=== PATIENT | female | born 1950 | race Caucasian/White ===

== ENCOUNTER 2019-02-25 16:55 | Emergency (ER) | payer OTHER, MEDICARE ==
[2019-02-25 17:06] VITALS: TEMP 98.4; BMI 46.0
--- NOTE | 2019-02-25 17:16 | PDOC ---
History of Present Illness <Carly Kuo Shielacapri - Last Filed: 02/25/19 19:03> - History of Present Illness Initial Comments: 02/25/19 17:25 The patient is a 68 year old female who denies any significant PMH who presents for evaluation of right elbow pain following a fall. The patient reports that she tripped over her feet earlier today and fell onto her right out stretched hand with immediate pain to her right elbow. She initially presented to her primary care provider's office who initially believed the patient to have a dislocated elbow. Attempts were made to relocate the elbow, however were unsuccessful and thus the patient was referred to the ED for further evaluation. The patient otherwise denies head trauma, LOC, SOB, shoulder pain, chest pain, nausea, vomiting, abdominal pain, numbness, tingling, or weakness. <Oscar Forman - Last Filed: 02/25/19 19:17> - General Chief Complaint: Shoulder Dislocation Stated Complaint: SENT BY PCP/ FALL Time Seen by Provider: 02/25/19 17:15 Past History <Carly Kuo Tari - Last Filed: 02/25/19 19:03> - Past Medical History COPD: No - Immunization History Immunization Up to Date: No - Suicide/Smoking/Psychosocial Hx Smoking History: Never smoked Have you smoked in the past 12 months: No Information on smoking cessation initiated: No Hx Alcohol Use: Yes Drug/Substance Use Hx: No <Oscar Forman - Last Filed: 02/25/19 19:17> - Past Medical History Allergies/Adverse Reactions: Allergies Allergy/AdvReac Type Severity Reaction Status Date / Time No Known Allergies Allergy Verified 02/25/19 17:06 Review of Systems - Review of Systems Comments:: 02/25/19 17:28 Constitutional: No fevers, chills, fatigue, malaise HEENT: No Rhinorrhea, nasal congestion, visual changes Cardiovascular: No chest pain, syncope, palpitations, lightheadedness Respiratory: No Cough, SOB, Hemoptysis, Gastrointestinal: No Abdominal pain, Nausea, Vomiting, Constipation, Diarrhea, Melena Genitourinary: No Dysuria, Frequency, Urgency, Hesitancy, Hematuria, Flank pain Musculoskeletal: Right elbow pain. No Myalgia, arthralgia Skin: No rashes, itching, bruising, pallor Neurologic: No Headache, Dizziness, Numbness, Weakness, or Tingling Psychiatric: No Hallucinations. No SI or HI <DasiaOscar - Last Filed: 02/25/19 19:17> *Physical Exam - Vital Signs Last Vital Signs Temp Pulse Resp BP Pulse Ox 98.4 F 70 25 H 169/61 99 02/25/19 17:03 02/25/19 18:42 02/25/19 18:42 02/25/19 18:42 02/25/19 18:42 <Carly Kuo - Last Filed: 02/25/19 19:03> - Vital Signs Last Vital Signs Temp Pulse Resp BP Pulse Ox 98.4 F 83 16 142/74 96 02/25/19 17:03 02/25/19 17:03 02/25/19 17:03 02/25/19 17:03 02/25/19 17:03 - Physical Exam Comments: 02/25/19 17:28 General Appearance: Nourished. No Apparent Distress HEENT: EOMI, ALPHONSE. No Pharyngeal Erythema, Tonsillar Exudate, Tonsillar Erythema Neck: No Cervical Lymphadenopathy Respiratory/Chest: Lungs Clear, Normal Breath Sounds. No Crackles, Rales, Rhonchi, Wheezing Cardiovascular: Regular Rhythm, Regular Rate. No Murmur, Gallops, Rubs Gastrointestinal/Abdominal: Normal Bowel Sounds, Soft. No Guarding, Rebound, Tenderness Musculoskeletal: No CVA Tenderness Extremity: Limited ROM of the right elbow secondary to pain. 2+ radial pulses bilaterally. Sensation to light touch and temperature intact distally. Deformity noted to the right elbow. Normal Capillary Refill Integumentary: Normal Color, Dry, Warm Neurologic: supervisor public health nursing II-XII NML intact, Fully Oriented, Alert, Normal Mood/Affect, Normal Response, <DasiaOscar - Last Filed: 02/25/19 19:17> Moderate Sedation - Pre-Procedure Assessment # 1 Joint Reduction Vital Signs: Vital Signs Temp Pulse Resp BP Pulse Ox 98.4 F 70 25 H 169/61 99 02/25/19 17:03 02/25/19 18:42 02/25/19 18:42 02/25/19 18:42 02/25/19 18:42 <Carly Kuo - Last Filed: 02/25/19 19:03> - Pre-Procedure Assessment # 1 Joint Reduction Is this a Moderate (Conscious) sedation patient?: Yes Med/Surg Hx & PE performed: Yes Vital Signs: Vital Signs Temp Pulse Resp BP Pulse Ox 98.4 F 83 16 142/74 96 02/25/19 17:03 02/25/19 17:03 02/25/19 17:03 02/25/19 17:03 02/25/19 17:03 Does the patient have a history of Obstructive Sleep Apnea: No Prior complications with sedation/analgesia: No Mallampati Score: III ASA Physical Status: Class II Consent obtained: Written, From Patient Time out called (time): 18:20 Items checked for time out procedure: All work stopped, Patient identified using 2 identifiers, Procedure to be performed verified & agreed, Allergies noted, Consent read, Site marked & verified (if indicated), ED physician/[employer]/PA/ Resident identified, Patient position verified, All active procedure participants present from the beginning Sedation agent: Propofol (with Ketamine) <Oscar Forman - Last Filed: 02/25/19 19:17> Procedures - Splinting Splint Location: Right: Elbow Pre-Proc Neuro Vasc Exam: normal Hand-Made Type: orthoglass Splint Type: Yes: Posterior Post-Proc Neuro Vasc Exam: normal, unchanged from pre-exam Eliseo Bandage: yes, 3" Sling: Yes Complications: No - Joint Reduction Right Joint Reduction Site: right: Radial Head Pre-Procedure NV Exam: normal Conscious Sedation: Yes Reduction Attempts: 1 Procedure: Traction Counter Traction Post-Procedure NV Exam: normal Complications: No Post Joint Reduction Film: no fracture seen Splint: Yes Immobilized: Yes <Oscar Forman - Last Filed: 02/25/19 19:17> ED Treatment Course - RADIOLOGY Radiology Studies Ordered: Category Date Time Status FOREARM- RIGHT [RAD] Stat Radiology 02/25/19 17:19 Taken SHOULDER-RIGHT [RAD] Stat Radiology 02/25/19 17:17 Taken - Medications Given in the ED: ED Medications Discontinued Medications Generic Name Dose Route Start Last Admin Trade Name Freq PRN Reason Stop Dose Admin Ketamine HCl 50 mg 02/25/19 18:00 02/25/19 18:15 Ketalar - IVPUSH 02/25/19 18:01 50 mg ONCE ONE Administration Ketamine HCl 50 mg 02/25/19 18:19 02/25/19 18:19 Ketalar - IVPUSH 02/25/19 18:20 50 mg NOW ONE Administration Propofol 50,000 mcg 02/25/19 18:00 02/25/19 18:15 Diprivan - IVPUSH 02/25/19 18:01 50,000 mcg ONCE ONE Administration Propofol 50,000 mcg 02/25/19 18:38 02/25/19 18:19 Diprivan - IVPUSH 02/25/19 18:39 50,000 mcg NOW ONE Administration <Carly Kuo - Last Filed: 02/25/19 19:03> Medical Decision Making - Medical Decision Making 02/25/19 17:29 The patient is a 68 year old female who denies any significant PMH who presents for evaluation of right elbow pain following a fall. Differential includes but is not limited to: Fracture, Dislocation, Contusion. Given the patient's history and physical exam, we will obtain plain films to evaluate further. We will continue to monitor and reassess while here in the ED. 02/25/19 19:15 Plain films demonstrate a posterior elbow dislocation. We performed joint reduction under procedural sedation with propofal and Ketamine. Post-reduction plain films demonstrate successful reduction of the patient's elbow. The patient was placed in a posterior splint. We are comfortable discharging the patient home in stable condition with orthopedics follow up. Patient and family made aware of impression and plan, return precautions discussed including but not limited to worsening pain or symptoms, fevers, or signs of infection, chest pain, respiratory distress, inability to tolerate oral intake, dehydration, syncope, or neurologic changes. The patient is to follow up with PMD and specialist as recommended within 1 week, follow up information provided and the patient will call for an appointment. The patient is to take medications as instructed for duration of time and continue with supportive care, avoid triggers and precipitants. Patient is safe for outpatient follow-up. <Oscar Forman - Last Filed: 02/25/19 19:17> *DC/Admit/Observation/Transfer - Discharge Dispostion Decision to Admit order: No <Carly Kuo - Last Filed: 02/25/19 19:03> <Oscar Forman - Last Filed: 02/25/19 19:17> Diagnosis at time of Disposition: Dislocation, elbow, posterior Qualifiers: Encounter type: initial encounter Laterality: right Qualified Code(s): S53.124A - Posterior dislocation of right ulnohumeral joint, initial encounter - Discharge Dispostion Disposition: HOME Condition at time of disposition: Improved - Referrals Referrals: Oliver Huynh MD [Staff Physician] - Angel Paredes MD [Staff Physician] - - Patient Instructions Printed Discharge Instructions: How to Use a Sling, DI for Elbow Dislocation, How to Take Care of Your Splint Additional Instructions: You had an elbow dislocation that was reduced and splint avoid heavy lifting or strenuous activity to minimize further injury May take ibuprofen 400-600mg and/or tylenol 650 to 975 mg every 6 hours as needed for mild to moderate pain, available over the counter. you are to maintain the splint until you see orthopedics for immobilization - monitor for compartment checks, worsening symptoms may include numbness, tingling, weakness, pain, swelling RICE rest ice elevate the affected extremity Rest, Ice (20 minutes at a time, 3 times a day), Compression (ELISEO wrap or splint ), Elevation (above the heart). Follow up with your primary care physician in 1 week if symptoms persist, or with orthopedics if needed. Follow up with primary doctor/specialist services provided as well. orthopedics referrals given. Dr Huynh/Reggie are the referrals. This should heal over the next 3-5 days. FALL PREVENTION AT HOME WHAT YOU NEED TO KNOW There are many different factors that can increase your risk of falls. Falls can happen any time, but the majority of them occur in the home. Fall prevention includes ways to make your home and other areas safer. It also includes ways you can move more carefully to prevent a fall. Health conditions that cause changes in your blood pressure, vision, or muscle strength and coordination may increase your risk for falls. Medicines, including anesthesia, may increase your risk for falls if they make you dizzy, weak, or sleepy. FALL PREVENTION TIPS Stand or sit up slowly. This may help you keep your balance and prevent falls. Do not walk and talk at the same time. Concentrate on the task of walking and continue the conversation after you've reached a safe place. Wear shoes that fit well and have soles that drafter mechanical. Wear shoes both inside and outside. Use slippers with good drafter mechanical. Avoid shoes with high heels. Use assistive devices as directed. Your healthcare provider may suggest that you use a cane or walker to help you keep you balance. Be sure you have adequate lighting throughout your house. Keep paths clear. Remove books, shoes and other objects from walkways and stairs. Keep cords for telephones and lamps out of the way so you dont need to walk over them. Remove small rugs or secure them with double-sided tape. This will prevent you from tripping. Use a nightlight when getting out of bed at night. Stay active to maintain overall strength and endurance. Know your limitations. If there is a task you can not complete with ease, do not risk a fall by trying to complete it. Call 911 or have someone else call if: You have fallen and are unconscious You have fallen and cannot move part of your body Contact your healthcare provider if: You have fallen and have pain or a headache You have questions or concerns about your condition or care.
--- NOTE | 2019-02-25 17:18 | PDOC ---
Attending Attestation - Resident Resident Name: Oscar Forman - ED Attending Attestation I have performed the following: I have examined & evaluated the patient, The case was reviewed & discussed with the resident, I agree w/resident's findings & plan - HPI HPI: 02/25/19 18:10 68 year old female with h/o breast ca in remission who presents for evaluation of right elbow pain and deformity s/p trip and fall and FOOSH. no head injury or LOC. She initially presented to her primary care provider's office with Dr Thompson who initially believed the patient to have a dislocated elbow. Attempts were made to relocate the elbow, however were unsuccessful and thus the patient was referred to the ED for further evaluation. no paresthesias or weakness. - Physicial Exam PE: 02/25/19 18:13 General: NAD, well appearing Vascular: 2+ DP pulses symmetric and equal. MSK: soft compartments, shoulder abduction/adduction/flexion/extension and prox strength 5/5 actively against resistance. 5/5 shoulder shrug strength. deltoid sensation intact; sensation grossly intact in median/radial/ulnar distribution. distal wired sweatband cutter strength 5/5. 2+ radialis pulses bilaterally and symmetric. +right elbow palp deformity and Tenderness, ROM limited 2/2 deformity Neuro: alert, no focal neurologic deficits Skin: color normal color, warm and well perfused. Cap refill <2 sec. Upper Extremity: - Medical Decision Making 02/25/19 18:14 Vital Signs Temp Pulse Resp BP Pulse Ox 98.4 F 83 16 142/74 96 02/25/19 17:03 02/25/19 17:03 02/25/19 17:03 02/25/19 17:03 02/25/19 17:03 DDx extremity pain: Sprain, contusion, extremity fracture, elbow posterior radial head dislocation, hematoma. Low suspicion for compartment syndrome, NVI and no neuro deficits. Xray of rue: +elbow dislocation, posteriorly of radial head. NVI procedural sedation, consented with risks and benefits with use of agents such as ketamine and propofol cardiac monitoring analgesia IV placed for access no events or complications or desats or hypotension. post reduction XR. demonstrated appropriate realignment, humerus in radial head , no fx noted. post procedure neuro exam normal, NVI, median/ulnar/radial nerve intact, 2+ radialis pulses equal and symmetric, ROM improved. immobilization with posterior long arm mold splint ortho cs with Robles Huynh/Reggie, outpatient followup splint care instructions 02/25/19 18:34 02/25/19 18:36 02/27/19 10:16
[2019-02-25] MEDS ORDERED: KETAMINE HCL 200 MG/20 ML VIAL IVPUSH ONE ×2 (18:00→18:19)
[2019-02-25] MEDS ORDERED: PROPOFOL 200 MG/20 ML VIAL IVPUSH ONE ×2 (18:00→18:38)
[2019-02-25] MEDS ORDERED: PROPOFOL 20 ML ONE (18:10)
[2019-02-25] MEDS ORDERED: KETAMINE HCL 500 MG/10 ML VIAL ONE (18:10)
[2019-02-25 20:44] VITALS: BP 151/62; PULSE 71
== END 2019-02-25 19:35 | disposition home or self-care (01) ==
LOC: JER 16:55
PROC: 2W3CX1Z Immobilization of Right Lower Arm using Splint (ICD-10-PCS; principal; 2019-02-25)
PROC: 3E033GC Introduction of Other Therapeutic Substance into Peripheral Vein, Percutaneous Approach (ICD-10-PCS; 2019-02-25)
DX: S53.124A Posterior dislocation of right ulnohumeral joint, initial encounter (principal); W01.0XXA Fall on same level from slipping, tripping and stumbling without subsequent striking against object, initial encounter; Y93.89 Activity, other specified; Y92.89 Other specified places as the place of occurrence of the external cause; Y99.8 Other external cause status
CPT/HCPCS: 24605; 73030-TC-RT-FY; 73060-TC-RT-FY; 73070-TC-RT-FY; 73090-TC-RT-FY; 96374; 96375; 96376; 99282-25